=== PATIENT | female | born 1965 | race Caucasian/White ===

== ENCOUNTER 2017-08-29 16:03 | Emergency (ER) | payer OTHER ==
[2017-08-29 16:20] VITALS: BP 124/85
[2017-08-29] MEDS ORDERED: LET GEL TOPICAL 1 EA SYR TP ONE (16:48)
[2017-08-29] MEDS ORDERED: TDAP ADULT 0.5 ML INJ (BOOSTRIX) IM ONE (16:49)
--- NOTE | 2017-08-29 17:00 | EDPHY ---
H & P Time Seen by Provider: 08/29/17 16:25 HPI/ROS: CHIEF COMPLAINT: Finger laceration History by patient HISTORY OF PRESENT ILLNESS: 52-year-old woman with no significant medical history presents complaining of laceration to dorsum of right index finger over PIP joint after she sliced using a mandolin slicer just prior to arrival. She states that there was some pulsatile bleeding at that time. She recovered the skin that came off the wound and placed it back on and then sought medical attention. Her last tetanus shot is unknown. She denies any other pain or injury. REVIEW OF SYSTEMS: As in HPI, and all other systems reviewed and are negative Smoking Status: Never smoked Physical Exam: General Appearance: Alert and no distress. Head: Normocephalic, atraumatic Eyes: Pupils equal and round no injection. Extraocular movements are intact. Musculoskeletal: Neck is supple and nontender. Extremities: Right index finger positive 1 x 1 cm circular skin avulsion over D IP joint. Joint has full range of motion in extension and flexion against resistance. Distal cap refills less than 2 sec. Distal sensation is intact. Bleeding is controlled. No tendons are visible. Skin: No rashes or lesions except as described above. Constitutional: Initial Vital Signs Temperature (C) 36.6 C 08/29/17 16:13 Heart Rate 84 08/29/17 16:13 Respiratory Rate 16 08/29/17 16:13 Blood Pressure 124/85 H 08/29/17 16:13 O2 Sat (%) 95 08/29/17 16:13 O2 Delivery Mode Room Air Allergies/Adverse Reactions: adhesive tape Allergy (Verified 08/29/17 16:12) glue Allergy (Intermediate, Uncoded 08/29/17 16:12) hive,swelling Home Medications: Medication Instructions Recorded Metformin HCl 08/29/17 Multivitamins 08/29/17 MDM/Departure - MDM Medications Given: Discontinued Medications Diphtheria/Tetanus/Acell Pertussis (Boostrix) 0.5 ml IM .ONCE ONE Stop: 08/29/17 16:50 Last Admin: 08/29/17 17:06 Dose: 0.5 ml Tetracaine/Epinephrine/Lidocaine (Let Gel Topical) 1 ea TP EDNOW ONE Stop: 08/29/17 16:49 Last Admin: 08/29/17 17:04 Dose: 1 ea ED Course/Re-evaluation: 52-year-old woman presents with skin avulsion of right index finger. Lesion is nonsuturable. Patient initially wanted to reattached the skin she had found on the mandoline but I explained that this was nonviable tissue. Wound was cleaned and dressed. Patient was given a tetanus shot. We discussed signs and symptoms of infection and return precautions. Patient is discharged home in stable condition. - Depart Disposition: Home, Routine, Self-Care Clinical Impression: Avulsion of skin of finger Qualifiers: Encounter type: initial encounter Qualified Code(s): S61.209A - Unspecified open wound of unspecified finger without damage to nail, initial encounter Clinical Impression: (Ruled Out): Laceration Condition: Good Instructions: Skin Avulsion (ED) Additional Instructions: You were seen by Dr. Melodie Way today. Keep your dressing on for the next 24 hr. After that you may remove it and wash the wound regularly with soap and water, cover it with ointment such as Aquaphor and a bandage. Do not submerge the wound such as in a swimming pool. Watch for signs and symptoms of infection including but not limited to pus from the wound, increased pain or redness, unexplained fever. Return for any worsening or new concerns. Referrals: NONE *PRIMARY CARE P,. [Primary Care Provider] - As per Instructions
== END 2017-08-29 17:15 | disposition home or self-care (01) ==
LOC: CED 16:03
DX: S61.200A Unspecified open wound of right index finger without damage to nail, initial encounter (principal); Z23 Encounter for immunization; W26.8XXA Contact with other sharp object(s), not elsewhere classified, initial encounter